=== PATIENT | female | born 1980 ===

== ENCOUNTER 2020-03-16 15:18 | Outpatient (REF) | payer OTHER, SELFPAY ==
[2020-03-16 20:10] LABS: Hemoglobin A1C 5.5 % (3.8-5.6)
[2020-03-16 20:17] LABS: Calculated LDL 101 mg/dL (<100); Cholesterol 165 mg/dL (<200); HDL Cholesterol 41 mg/dL (40-60); Triglyceride 117 mg/dL (<150)
== END 2020-03-16 15:38 ==
LOC: NCHCN 15:18
PROVIDERS: PCP Family Medicine; Visit Provider Family Medicine
DX: E66.9 Obesity, unspecified (principal); Z13.220 Encounter for screening for lipoid disorders; Z13.1 Encounter for screening for diabetes mellitus
CPT/HCPCS: 80061; 83036